=== PATIENT | male | born 1955 | race Two or more races ===

== ENCOUNTER 2016-05-31 20:48 | Emergency (ER) | payer SELFPAY ==
[~2016-05-31] VITALS: Ht 172.7 cm; Wt 100.0 kg
[2016-05-31] MEDS ORDERED: ONDANSETRON HCL 4MG/2ML VIAL IV ONE (21:45)
[2016-05-31] MEDS ORDERED: FAMOTIDINE 20MG/2ML VIAL IV ONE (21:45)
[2016-05-31] MEDS ORDERED: MAGNESIUM/ALUMINUM HYDROXIDE/SIMETHICONE 30ML UDC PO ONE (21:45)
[2016-05-31 22:21] LABS: BASOPHILS % 0.7 % (0.0-2.0); EOSINOPHILS % 0.5 % (0.0-5.0); HEMATOCRIT. 39.2 % (42.0-52.0); LYMPHOCYTES % 19.1 % (20.0-50.0); MEAN CORPUSCULAR HEMOGLOBIN 27.8 pg (28.0-32.0); MEAN CORPUSCULAR HGB CONC 33.2 g/dL (31.0-37.0); MEAN CORPUSCULAR VOLUME 83.8 fL (80.0-94.0); MEAN PLATELET VOLUME 7.4 fl (7.4-10.4); MONOCYTES % 7.4 % (2.0-8.0); NEUTROPHILS % 72.3 % (40.0-76.0); PLATELET 147 x1000/uL (130-400); RED BLOOD CELL COUNT 4.67 mill/uL (4.7-6.1); RED CELL DISTRIBUTION WIDTH 16.8 % (11.6-14.6); WHITE BLOOD COUNT 5.7 x1000/uL (4.5-11.0)
[2016-05-31 22:27] LABS: ANION GAP 17; CALCIUM 7.2 mg/dL (8.5-10.1); CARBON DIOXIDE 25 mEq/L (21-32); CHLORIDE 103 mEq/L (98-107); INDEX HEMOLYSI 1 (1-3); INDEX ICTERIC 1 (1-4); INDEX LIPEMIC 1 (1-3); LIPASE 796 IU/L (73-393); UREA NITROGEN BLOOD 13 mg/dL (7-21)
[2016-05-31 22:29] LABS: INR 1.1; PARTIAL THROMBOPLASTIN TIME 22.9 sec (24.0-34.0); PROTHROMBIN TIME 11.2 sec
[2016-05-31 22:30] LABS: ALANINE AMINOTRANSFERASE 91 IU/L (13-61); eGFR > 60 mL/min (>60)
[2016-05-31 22:35] LABS: TROPONIN I < 0.02 ng/mL (0.00-0.04)
[2016-05-31 22:39] LABS: ETHANOL BLOOD 320 mg/dL
[2016-06-01 02:05] VITALS: BP 147/88
== END 2016-06-01 05:08 | disposition home or self-care (01) ==
LOC: ER 20:49
DX: K85.20 Alcohol induced acute pancreatitis without necrosis or infection (principal); F10.129 Alcohol abuse with intoxication, unspecified; Y90.8 Blood alcohol level of 240 mg/100 ml or more; F17.210 Nicotine dependence, cigarettes, uncomplicated
CPT/HCPCS: 36415; 71010; 80053; 83690; 84484; 85025; 85610; 85730; 93005; 96374; 96375; 99285; G0482; J2405; J3490; Z7610